=== PATIENT | female | born 1980 | race Caucasian/White ===

== ENCOUNTER 2018-12-27 11:12 | Emergency (ER) | payer MEDICAID ==
[~2018-12-27] VITALS: Ht 160 cm; Wt 58.1 kg
[2018-12-27 11:27] VITALS: Ht 160 cm; Wt 58.1 kg
[2018-12-27 13:06] VITALS: BP 134/80
== END 2018-12-27 13:06 | disposition home or self-care (01) ==
LOC: ED 11:12
DX: M25.551 Pain in right hip (principal)